=== PATIENT | male | born 1940 | race Caucasian/White ===

== ENCOUNTER → 2017-06-27 | Outpatient (CLI) | payer MEDICARE, OTHER ==
[~2017-06-27] MED LIST: REGADENOSON 0.4 MG/5 ML SYRINGE ONE
== END ==
LOC: CVU 07:31
PROVIDERS: ATTEND Internal Medicine Cardiovascular Disease
DX: I65.23 Occlusion and stenosis of bilateral carotid arteries (principal); I63.50 Cerebral infarction due to unspecified occlusion or stenosis of unspecified cerebral artery; I10 Essential (primary) hypertension; E78.5 Hyperlipidemia, unspecified; Z87.891 Personal history of nicotine dependence
CPT/HCPCS: 78452; 93017; 93880; A9502; J2785

== ENCOUNTER → 2018-07-31 | Outpatient (CLI) | payer MEDICARE, OTHER ==
[~2018-07-31] MED LIST changes: +OMNIPAQUE 350 MG/ML, 150 ML BOTTLE ONE; -REGADENOSON 0.4 MG/5 ML SYRINGE ONE
== END | disposition home or self-care (01) ==
LOC: CFH 14:40
PROVIDERS: ATTEND Urology
DX: N28.89 Other specified disorders of kidney and ureter (principal)
CPT/HCPCS: 74178; 82565; Q9967

== ENCOUNTER → 2019-02-27 | Outpatient (CLI) | payer MEDICARE, OTHER ==
[~2019-02-27] MED LIST changes: +GADOTERATE 10 MMOL/20 ML VIAL ONE; -OMNIPAQUE 350 MG/ML, 150 ML BOTTLE ONE
== END | disposition home or self-care (01) ==
LOC: RAD 13:30
PROVIDERS: ATTEND Urology
DX: D49.512 Neoplasm of unspecified behavior of left kidney (principal); N28.89 Other specified disorders of kidney and ureter
CPT/HCPCS: 74183; A9575

== ENCOUNTER → 2019-04-30 | Outpatient (CLI) | payer MEDICARE, OTHER | END | disposition home or self-care (01) | LOC: CFH 13:27 | PROVIDERS: ATTEND Internal Medicine Cardiovascular Disease | DX: I08.3 Combined rheumatic disorders of mitral, aortic and tricuspid valves (principal); I11.9 Hypertensive heart disease without heart failure; I44.0 Atrioventricular block, first degree; I25.2 Old myocardial infarction | CPT/HCPCS: 93005; 93306; 93356 ==

== ENCOUNTER → 2019-09-13 | Outpatient (CLI) | payer MEDICARE, OTHER | END | disposition home or self-care (01) | LOC: CFH 12:46 | PROVIDERS: ATTEND Urology | DX: D17.71 Benign lipomatous neoplasm of kidney (principal); N28.1 Cyst of kidney, acquired; N28.89 Other specified disorders of kidney and ureter | CPT/HCPCS: 76770 ==

== ENCOUNTER → 2019-10-21 | Outpatient (CLI) | payer MEDICARE, OTHER | END | disposition home or self-care (01) | LOC: CFH 09:33 | PROVIDERS: ATTEND Internal Medicine Cardiovascular Disease | DX: I08.3 Combined rheumatic disorders of mitral, aortic and tricuspid valves (principal); I10 Essential (primary) hypertension | CPT/HCPCS: 93306; 93356 ==

== ENCOUNTER 2019-11-21 10:06 | Day surgery (SDC) | payer MEDICARE, OTHER ==
[~2019-11-21] VITALS: Ht 185.4 cm; Wt 108.2 kg
[2019-11-21] MEDS ORDERED: SODIUM CHLORIDE 0.9% 1,000 ML IV ONE (10:30)
[2019-11-21] MEDS ORDERED: ferrous sulfate PO (10:46)
[2019-11-21] MEDS ORDERED: CYAN250013 PO (10:46)
[2019-11-21] MEDS ORDERED: MULT-717 PO (10:46)
[2019-11-21] MEDS ORDERED: FURO20TA3 PO (10:46)
[2019-11-21] MEDS ORDERED: TAMS-11 PO (10:46)
[2019-11-21] MEDS ORDERED: DUTA0.5C16 PO (10:46)
[2019-11-21] MEDS ORDERED: METO50TA82 PO (10:46)
[2019-11-21] MEDS ORDERED: CLOP75TA52 PO (10:46)
[2019-11-21] MEDS ORDERED: POTA20TA6 PO (10:46)
[2019-11-21 10:51] VITALS: BP 194/85
[2019-11-21 11:10] LABS: ANION GAP 6 mmol/L (5-15); BASOPHILS # (AUTO) 0.03 x10^3/uL (0-0.1); BASOPHILS % (AUTO) 1 % (0-1); CHLORIDE 115 mmol/L (98-107); CREATININE 1.04 mg/dL (0.7-1.3); EOSINOPHILS # (AUTO) 0.13 x10^3/uL (0-0.4); EOSINOPHILS % (AUTO) 2 % (1-7); LYMPHOCYTES # (AUTO) 1.06 x10^3/uL (1-3.4); LYMPHOCYTES % (AUTO) 15 % (22-44); MD NO; MEAN CORPUSCULAR HEMOGLOBIN 29.6 pg (27.5-34.5); MEAN CORPUSCULAR HGB CONC 32.2 g/dL (33.2-36.2); MEAN CORPUSCULAR VOLUME 91.8 fL (81-97); MEAN PLATELET VOLUME 8.9 fL (7.4-10.4); MONOCYTES # (AUTO) 0.37 x10^3/uL (0.2-0.8); MONOCYTES % (AUTO) 5 % (2-9); NEUTROPHILS # (AUTO) 5.45 x10^3/uL (1.8-6.8); NEUTROPHILS % (AUTO) 77 % (42-75); PLATELET COUNT 278 x10^3/uL (130-400); RED BLOOD COUNT 4.64 x10^6/uL (4.38-5.82); RED CELL DISTRIBUTION WIDTH 14.7 % (9.4-14.8)
[2019-11-21] MEDS ORDERED: PROPOFOL 10 MG/ML, 20ML ONE (12:46)
[2019-11-21] MEDS ORDERED: SODIUM CHLORIDE 0.9% 1,000 ML IV SCH (13:36)
[2019-11-21] MEDS ORDERED: hydrALAzine 20 MG/ML, 1ML ONE (14:13)
[2019-11-21] MEDS ORDERED: hydrALAzine 20 MG/ML, 1ML IV ONE (14:30)
== END 2019-11-21 15:55 | disposition home or self-care (01) ==
LOC: CACL 10:06
PROVIDERS: ATTEND Internal Medicine Cardiovascular Disease
DX: I08.0 Rheumatic disorders of both mitral and aortic valves (principal); Z11.59 Encounter for screening for other viral diseases; I25.10 Atherosclerotic heart disease of native coronary artery without angina pectoris; I10 Essential (primary) hypertension; I87.2 Venous insufficiency (chronic) (peripheral); I47.1 Supraventricular tachycardia; I25.2 Old myocardial infarction; E11.9 Type 2 diabetes mellitus without complications; E78.2 Mixed hyperlipidemia; Z79.82 Long term (current) use of aspirin; Z79.899 Other long term (current) drug therapy; Z86.73 Personal history of transient ischemic attack (TIA), and cerebral infarction without residual deficits; Z88.8 Allergy status to other drugs, medicaments and biological substances; Z95.5 Presence of coronary angioplasty implant and graft
CPT/HCPCS: 36415; 80048; 85025; 87635; 93312; 93325; 93460; 99156; C1769; C1894; J0360; J2704; J7030; Q9967

== ENCOUNTER → 2020-08-12 | Outpatient (CLI) | payer MEDICARE, OTHER ==
[~2020-08-12] MED LIST changes: +CLOP75TA52 PO; +CYAN250013 PO; +DUTA0.5C36 PO; +FURO20TA3 PO; -GADOTERATE 10 MMOL/20 ML VIAL ONE; +METO50TA82 PO; +MULT-717 PO; +OMNIPAQUE 350 MG/ML, 100ML BOTTLE ONE; +POTA20TA6 PO; +TAMS-11 PO; +ferrous sulfate PO
== END | disposition home or self-care (01) ==
LOC: CFH 13:08
PROVIDERS: ATTEND Urology
DX: C64.2 Malignant neoplasm of left kidney, except renal pelvis (principal); N28.89 Other specified disorders of kidney and ureter
CPT/HCPCS: 74160; 82565; Q9967